=== PATIENT | male | born 1955 | race African-American/Black ===

== ENCOUNTER 2017-06-04 09:56 | Day surgery (SDC) | payer MEDICARE, OTHER ==
[2017-05-29 12:10] VITALS: BMI 35.1
[~2017-06-04 09:56] MED LIST: LACTATED RINGERS 1,000 ML IV SCH; LIDOCAINE 1% 20 ML VIAL (10MG/ML) FOR IV START INTRADERMA PRN
[2017-06-04 11:16] VITALS: RESP 16; TEMP 97
[2017-06-04] MEDS: LACTATED RINGERS 1,000 ML IV SCH ×2 (11:20→12:43)
[2017-06-04] MEDS ORDERED: PROPOFOL 10 MG/ML 20 ML VIAL IV ONE (12:44)
--- NOTE | 2017-06-04 13:00 | P.GSHP ---
History of Present Illness H&P Date: 06/04/17 Chief Complaint: Screening colonoscopy This a 61-year-old male referred from Dr. carroll. Patient presents today for screening colonoscopy. He denies a significant GI complaints. Past Medical History Past Medical History: COPD, Hypertension, Osteoarthritis (OA) History of Any Multi-Drug Resistant Organisms: None Reported Additional Past Surgical History / Comment(s): Surgery for severed R leg in 1976 , Colonoscopy. Past Anesthesia/Blood Transfusion Reactions: No Reported Reaction Past Psychological History: Anxiety, Depression Smoking Status: Former smoker Past Alcohol Use History: None Reported Additional Past Alcohol Use History / Comment(s): Started smoking at age 18. Smoked 1-2 PPD. Quit May 2017. Past Drug Use History: None Reported - Past Family History Mother Family Medical History: No Reported History Medications and Allergies Home Medications Medication Instructions Recorded Confirmed Type Cholecalciferol (Vitamin D3) 50,000 unit PO TH 04/08/16 05/29/17 History [Vitamin D] Ginseng 400 mg PO BID 04/08/16 05/29/17 History HYDROcodone/APAP 5-325MG [[place] 1 tab PO BID PRN 04/08/16 05/29/17 History 5-325] Naproxen [Naprosyn] 250 mg PO DAILY PRN 04/08/16 05/29/17 History buPROPion [Wellbutrin] 150 mg PO DAILY 04/08/16 05/29/17 History clonazePAM [KlonoPIN] 10 mg PO DAILY PRN 04/08/16 05/29/17 History Albuterol Inhaler [Ventolin Hfa 1 - 2 puff INHALATION Q6HR PRN 05/23/17 History Inhaler] Fluticasone/Salmeterol [Advair Hfa 2 puff INHALATION BID PRN 05/23/17 05/29/17 History 115-21 Mcg Inhaler] Losartan [Cozaar] 50 mg PO QAM 05/23/17 06/04/17 History Magnesium Oxide [Mag-Ox] 250 mg PO QAM 05/23/17 05/29/17 History Nicotine 14Mg/24Hr Patch [Habitrol 1 patch TRANSDERM DAILY 05/23/17 05/29/17 History 14Mg/24Hr Patch] Allergies Allergy/AdvReac Type Severity Reaction Status Date / Time gabapentin [From Neurontin] AdvReac Hallucinati Verified 06/04/17 11:23 ons Surgical - Exam Vital Signs Temp Pulse Resp BP Pulse Ox 97.0 F L 70 16 137/93 92 L 06/04/17 11:13 06/04/17 11:13 06/04/17 11:13 06/04/17 11:13 06/04/17 11:13 - General well developed, no distress - Eyes PERRL - ENT normal pinna - Neck no masses - Respiratory normal expansion - Cardiovascular Rhythm: regular - Abdomen Abdomen: soft, non tender Assessment and Plan Plan: We will perform screening colonoscopy.
--- NOTE | 2017-06-04 13:10 | P.OP ---
Date of Procedure: 06/04/17 Preoperative Diagnosis: Screening colonoscopy Postoperative Diagnosis: Diverticulosis Procedure(s) Performed: Colonoscopy Implants: Anesthesia: MAC Surgeon: Gustavo Figueroa Pathology: none sent Condition: stable Disposition: PACU Indications for Procedure: Operative Findings: Description of Procedure: The patient's placed on the endoscopy table in the lateral position. He received IV sedation. Digital rectal exam was performed which revealed no abnormalities. The prostate was symmetrical without nodules. The flexible colonoscope was then placed patient anus passed throughout the entire colon. The ileocecal valve was visualized. Cecum and ascending colon appeared normal. In the transverse colon was a few scattered diverticula. In the descending and sigmoid: there is more diverticula seen. There is known to diverticulitis. The scope was then brought back the rectum and this appeared normal. The scope was withdrawn for patient.
[2017-06-04 13:31] VITALS: BP 107/64; PULSE 70
== END 2017-06-04 14:14 | disposition home or self-care (01) ==
LOC: ORWHC2ENDO 09:56
PROVIDERS: ATTEND Surgery
DX: Z12.11 Encounter for screening for malignant neoplasm of colon (principal); K57.32 Diverticulitis of large intestine without perforation or abscess without bleeding; J44.9 Chronic obstructive pulmonary disease, unspecified; I10 Essential (primary) hypertension; M19.90 Unspecified osteoarthritis, unspecified site; F41.9 Anxiety disorder, unspecified; F32.9 Major depressive disorder, single episode, unspecified; Z79.51 Long term (current) use of inhaled steroids; Z79.899 Other long term (current) drug therapy; Z87.891 Personal history of nicotine dependence
CPT/HCPCS: J2704; G0121

== ENCOUNTER → 2019-11-30 | Day surgery (SDC) | payer MEDICARE, OTHER ==
[2019-11-29 12:35] VITALS: BMI 32.3
[~2019-11-30] MED LIST changes: +LACTATED RINGERS 1,000 ML IV ONE; -LACTATED RINGERS 1,000 ML IV SCH; -LIDOCAINE 1% 20 ML VIAL (10MG/ML) FOR IV START INTRADERMA PRN; +LIDOCAINE 1% INJ 10MG/ML (20 ML MDV) ONE; +PROPOFOL 10 MG/ML 20 ML VIAL IV ONE
[2019-11-30 07:56] LABS: Glucose,Whole Blood 117 mg/dL (75-99)
[2019-11-30 07:57] VITALS: TEMP 98.2
--- NOTE | 2019-11-30 08:55 | P.PCN ---
Date of Procedure: 11/30/19 Description of Procedure: BRIEF HISTORY: Patient is a 64-year-old male presents for outpatient colonoscopy for screening for malignant neoplasm of the colon. He reports 3 prior colonoscopies with polypectomy and past. Denies any change in bowel habits, blood per rectum or abdominal pain. No family history of colon cancer. PROCEDURE PERFORMED: Colonoscopy. PREOPERATIVE DIAGNOSIS: Screening for malignant neoplasm of the colon, last colonoscopy 3 years ago per his recollection, prior history of colon polyps. ESTIMATED BLOOD LOSS: Minimal. IV sedation per Anesthesia. PROCEDURE: After informed consent was obtained, the patient, was brought into the endoscopy unit. IV sedation was administered by Anesthesia under continuous monitoring. Digital rectal examination was normal. Initially the Olympus CF-190 flexible video colonoscope was then inserted in the rectum, gradually advanced into the cecum without any difficulty. Careful examination was performed as the scope was gradually being withdrawn. Ileocecal valve and the appendiceal orifice were visualized and appeared normal. Prep was excellent. Mucosa of the cecum, ascending colon, transverse colon, descending colon, sigmoid colon, and rectum appeared normal. Multiple small and large mouth diverticula in the left colon. Retroflexion was performed in the rectum and no lesions were seen. The patient tolerated the procedure well. IMPRESSION: Normal-appearing colon from rectum to cecum, and normal-appearing terminal ileum. Moderate left colonic diverticulosis. RECOMMENDATIONS: Findings of this examination were discussed with the patient and his friend. Okay to resume diet. Okay to resume medications. Recommend repeat colonoscopy in 5 years for personal history of colon polyps.
[2019-11-30 09:10] VITALS: BP 138/75; PULSE 76; RESP 18
== END ==
LOC: ORWHC2ENDO 07:22
PROVIDERS: ATTEND Internal Medicine
DX: Z12.11 Encounter for screening for malignant neoplasm of colon (principal); K57.30 Diverticulosis of large intestine without perforation or abscess without bleeding; Z86.010 Personal history of colon polyps; I10 Essential (primary) hypertension; E11.9 Type 2 diabetes mellitus without complications; F39 Unspecified mood [affective] disorder; J44.9 Chronic obstructive pulmonary disease, unspecified; F17.200 Nicotine dependence, unspecified, uncomplicated; Z88.8 Allergy status to other drugs, medicaments and biological substances; Z79.4 Long term (current) use of insulin; Z79.899 Other long term (current) drug therapy
CPT/HCPCS: G0105; J2001; J2704

== ENCOUNTER 2019-12-24 05:12 | Emergency (ER) | payer MEDICARE, OTHER ==
[2019-12-24 05:22] VITALS: RESP 18; TEMP 97.6
[2019-12-24] MEDS ORDERED: IBUPROFEN 600 MG TAB PO STA (06:00)
[2019-12-24] MEDS ORDERED: MORPHINE SULFATE 4 MG/ML SYRINGE IM STA (06:00)
--- NOTE | 2019-12-24 06:30 | XR ---
EXAMINATION TYPE: XR shoulder complete RT DATE OF EXAM: 12/24/2019 COMPARISON: NONE HISTORY: Right shoulder pain TECHNIQUE: 3 views FINDINGS: I see no fracture nor dislocation. Glenohumeral joint is intact. AC joint is intact. There are no pathologic calcifications. IMPRESSION: Negative right shoulder exam.
[2019-12-24] MEDS ORDERED: HYDROmorphone 1 MG/ML 1 ML SYRINGE IM STA (06:45)
--- NOTE | 2019-12-24 06:52 | ED ---
Upper Extremity HPI - General Chief Complaint: Extremity Injury, Upper Stated Complaint: Shoulder pain Time Seen by Provider: 12/24/19 05:29 Source: patient Limitations: no limitations - History of Present Illness Initial Comments: The patient is a 63-year-old male with past medical history of hypertension, osteoporosis and COPD who presents emergency room with reported right shoulder pain. He states that 2 days ago he ran into a wall with his right shoulder. He did not suffer any pain after the incident. States that last night he became to feel sore and this morning he could barely move his arm. He states the pain is palpable to the anterior right shoulder. States he has excruciating pain when he flexes or abducts. He denies any neck pain or stiffness. No weakness in the extremity. Denies any numbness or tingling. No back pain. Denies any fevers or chills. No history of drug use. No numbness, tingling, weakness or pain in his lower extremity. He has been taking his prescribed [place] which he takes for chronic back pain however hasn't been helping his shoulder pain. There are no alleviating, precipitating or modifying factors - Related Data Home Medications Medication Instructions Recorded Confirmed Ginseng 400 mg PO DAILY 04/08/16 12/24/19 buPROPion [Wellbutrin] 150 mg PO QAM 04/08/16 12/24/19 Albuterol Inhaler [Ventolin Hfa 1 - 2 puff INHALATION Q6HR PRN 05/23/17 12/24/19 Inhaler] Losartan [Cozaar] 50 mg PO QAM 05/23/17 12/24/19 Atorvastatin [Lipitor] 20 mg PO DAILY 11/29/19 12/24/19 Hydrocodone/Acetaminophen [[place] 1 tab PO TID PRN 11/29/19 12/24/19 7.5-325] Insulin Degludec [Tresiba 8 units SQ QAM 11/29/19 12/24/19 Flextouch U-100] metFORMIN HCL 1,000 mg PO BID 11/29/19 12/24/19 Previous Rx's Medication Instructions Recorded HYDROcodone/APAP 7.5-325MG [[place] 1 tab PO Q6HR PRN 3 Days #12 tab 12/24/19 7.5-325] Allergies Allergy/AdvReac Type Severity Reaction Status Date / Time gabapentin [From Neurontin] AdvReac Hallucinati Verified 11/29/19 12:21 ons Review of Systems ROS Statement: Those systems with pertinent positive or pertinent negative responses have been documented in the HPI. ROS Other: All systems not noted in ROS Statement are negative. Past Medical History Past Medical History: COPD, Diabetes Mellitus, Hypertension, Osteoarthritis (OA) History of Any Multi-Drug Resistant Organisms: None Reported Additional Past Surgical History / Comment(s): Surgery for severed R leg in 1976, Colonoscopy. Past Anesthesia/Blood Transfusion Reactions: No Reported Reaction Past Psychological History: Anxiety, Depression Smoking Status: Current some day smoker Past Alcohol Use History: None Reported Past Drug Use History: Marijuana - Past Family History Mother Family Medical History: No Reported History General Exam Limitations: no limitations General appearance: alert, in no apparent distress Neck exam: Present: normal inspection, full ROM. Absent: tenderness, meningismus, lymphadenopathy Extremities exam: Present: other (tenderness at the insertion of the bicep proximally. Patient has intact flexion and abduction at the shoulder however it is painful. Intact flexion and extention/pronation and supination at the elbow. Intact wrist extension. Sensation intact distally. 2+ radial and ulnar pulses. cap refill <3 seconds) Course Vital Signs 12/24/19 12/24/19 05:14 07:12 Temperature 97.6 F Pulse Rate 90 64 Respiratory 18 18 Rate Blood Pressure 174/91 162/92 O2 Sat by Pulse 99 98 Oximetry Medical Decision Making - Medical Decision Making Upon arrival the patient was placed into room 2. A thorough history and physical exam was performed. The patient was offered something for pain control. 4 mg of morphine was provided IM. Patient went for an x-ray of the right shoulder. Demonstrate any dislocation or fracture. The patient is reevaluated and continues to have pain. He is requesting something stronger and therefore is given 1 mg of Dilaudid. Does have a ride home. I discussed diagnosis, differential and treatment options. I do believe the patient is suffering from tendinitis. He may require an MRI. The patient does have appointment with his primary care doctor today. I informed him that he should retain his appointment at 11 AM. He is requesting something at home for pain. States that he is out of his [place] and is requesting a prescription for it. 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 The patient understood this. He is given a written prescription and I do inform him that he should find out the details of his treatment with his pain management doctor mustapha valera filling it. He is given a three-day course [place]. He does sign an opioid start talking form. The patient will be discharged at this time. He is to return for any new or worsening symptoms. He was given follow up information for the orthopedic associates. He is discharged home in stable condition Disposition Clinical Impression: Shoulder pain, right Disposition: HOME SELF-CARE Condition: Stable Instructions (If sedation given, give patient instructions): Tendinitis (ED) Additional Instructions: Please follow up with your primary care doctor today at 11 AM. I also recommend that you follow up with an orthopedic doctor. You will need an MRI of your shoulder. Return to the emergency room for any new worsening symptoms Prescriptions: HYDROcodone/APAP 7.5-325MG [[place] 7.5-325] 1 tab PO Q6HR PRN 3 Days #12 tab PRN Reason: Pain Is patient prescribed a controlled substance at d/c from ED?: Yes When asked, does pt state using other controlled substances?: Yes If prescribed controlled substance>3 days was MAPS reviewed?: Prescribed <3 Days If opioid is for acute pain is fill amount 7 days or less?: Yes If Rx opioid, was Start Talking consent form obtained?: Yes Referrals: Nonstaff,Physician [Primary Care Provider] - 1-2 days Jesse Gardner DO [Medical Doctor] - 1-2 days Time of Disposition: 06:52
[2019-12-24 07:13] VITALS: BP 162/92; PULSE 64
== END 2019-12-24 07:12 | disposition home or self-care (01) ==
LOC: EC 05:12
DX: M25.511 Pain in right shoulder (principal); J44.9 Chronic obstructive pulmonary disease, unspecified; E11.9 Type 2 diabetes mellitus without complications; I10 Essential (primary) hypertension; M19.90 Unspecified osteoarthritis, unspecified site; F41.9 Anxiety disorder, unspecified; G89.29 Other chronic pain; M54.9 Dorsalgia, unspecified; F32.9 Major depressive disorder, single episode, unspecified; F17.200 Nicotine dependence, unspecified, uncomplicated; Z79.891 Long term (current) use of opiate analgesic; Z79.4 Long term (current) use of insulin; Z79.51 Long term (current) use of inhaled steroids; Z79.899 Other long term (current) drug therapy; Z88.8 Allergy status to other drugs, medicaments and biological substances
CPT/HCPCS: 73030; 96372 ×2; 99283; J2270; J1170